=== PATIENT | female | born 1940 | race Caucasian/White ===

== ENCOUNTER 2016-07-16 11:33 | Emergency (ER) | payer MEDICARE, BC ==
[2016-07-16 11:54] VITALS: TEMP 97.7
[2016-07-16] MEDS ORDERED: SODIUM CHLORIDE 0.9% 1,000 ML IV STA ×2 (12:39)
[2016-07-16] MEDS ORDERED: MORPHINE SULFATE 4 MG/ML SYRINGE IVP STA ×2 (12:39→17:38)
[2016-07-16 13:39] LABS: Calcium 9.2 mg/dL (8.4-10.2); Potassium 4.7 mmol/L (3.5-5.1)
[2016-07-16 13:42] LABS: Appearance,Urine Clear (Clear); Bilirubin,Urine Negative (Negative); Glucose,Urine (UA) 1+ (Negative); Ketones,Urine Negative (Negative); Leukocyte Esterase,Urine Negative (Negative); Nitrite,Urine Negative (Negative); Particle Count 1234; Protein,Urine Trace (Negative); RBC,Urine <1 /hpf (0-5); Specific Gravity,Urine 1.004 (1.001-1.035); Squamous Epithelial Cell,Urine 1 /hpf (0-4); UA Billing (MACRO vs. MICRO) MICRO; Urobilinogen,Urine <2.0 mg/dL (<2.0); WBC,Urine <1 /hpf (0-5)
[2016-07-16 13:43] LABS: Basophils % (A) 0 %; CH 30.6; CHCM 34.7; Eosinophils % (A) 0 %; HCT 33.3 % (34.0-46.0); HDW 2.89; HGB 11.3 gm/dL (11.4-16.0); Luc # (Auto) 0.21; Luc % (Auto) 2; Lymphocytes # (A) 0.6 k/uL (1.0-4.8); Lymphocytes % (A) 5 %; MCHC 33.9 g/dL (31.0-37.0); MCV 88.6 fL (80.0-100.0); Mean Platelet Volume 7.2; Monocytes # (A) 0.9 k/uL (0-1.0); Monocytes % (A) 8 %; Neutrophils # (A) 10.3 k/uL (1.3-7.7); Neutrophils % (A) 85 %; RBC 3.75 m/uL (3.80-5.40); RDW 13.1 % (11.5-15.5); WBC 12.1 k/uL (3.8-10.6); WBC (Perox) 12.63
--- NOTE | 2016-07-16 14:06 | CT ---
EXAMINATION TYPE: CT lumbar spine wo con DATE OF EXAM: 07/16/2016 1:47 PM COMPARISON: NONE HISTORY: back pain CT DLP: 1202.9 mGycm CONTRAST: Unenhanced CT of the lumbar spine is performed . Unenhanced CT of the lumbar spine was performed. Bone and soft tissue window settings are submitted as well as coronal and sagittal reconstructions. T12-L1: There is a mild superior endplate compression fracture involving T12 with minimal bony retrop ulsion of 2 mm posterior column is intact as is the middle column. Degenerative disc space narrowing is noted. No herniation or protrusion. L1-L2: Normal disc space height. No disc herniation protrusion or central stenosis. No facet joint arthropathy. No evidence for foraminal encroachment. L2-L3: Severe degenerative disc space narrowing with endplate sclerosis. Associated spondylosis. Disc bulging without herniation protrusion or central stenosis. L3-L4: Marked narrowing at the L3-4 disc space may be related to congenital or postoperative fusion. No disc herniation protrusion or central stenosis. No facet joint arthropathy. No evidence for fora shayne encroachment. L4-L5: Moderate degenerative disc space narrowing. Grade 1 anterolisthesis L4 and L5 measuring 3 mm. Moderate circumferential disc bulge greatest posteriorly with effacement of the ventral thecal sac an d I suspect bilateral lateral recess stenosis. Severe facet joint arthropathy without central stenosi s. L5-S1: Moderate degenerative disc space narrowing. Posterior disc bulge with encapsulating spur resul ting in hard disc. Mild effacement ventral thecal sac. No central stenosis or disc herniation. Facet joint arthropathy. No paraspinal masses are identified. IMPRESSION: 1. Mild stable superior endplate compression fracture involving T12 with minimal bony retropulsion of 2 mm. 2. Degenerative disc disease as discussed above.
--- NOTE | 2016-07-16 14:23 | ED ---
Back Pain HPI - General Chief Complaint: Back Pain/Injury Stated Complaint: back pain Time Seen by Provider: 07/16/16 12:26 Source: patient, family Limitations: no limitations - History of Present Illness Initial Comments: Patient is a 75-year-old female past medical history of multiple myeloma, DVT, COPD presenting with back pain. Patient states the past 2 weeks she has been having lateral lower flank pain. Patient states she takes tramadol without relief as she has allergies to APAP and Motrin. Patient states pain is worse with movement and better with resting. Patient states she feels like she has a urinary tract infection as she's had similar symptoms like this in the past for which she's had a UTI. Last diagnosed with UTI in March 2016. Patient does have multiple myeloma under current chemotherapy. She is also on steroids. Patient complains of incontinence but that has been going on for 9 months. Patient denies any saddle anesthesia. Denies lower extremity weakness. Denies incontinence of stool. - Related Data Home Medications Medication Instructions Recorded Confirmed Aspirin EC [Ecotrin Low Dose] 81 mg PO DAILY 01/18/14 07/16/16 Calcium Citrate/Vitamin D3 1 tab PO TID 01/18/14 07/16/16 [Calcium Citrate - Vit D3 Tab] Cranberry Conc/C/Bacill Coag 1 tab PO DAILY 01/18/14 07/16/16 [Cranberry Tablet] Levothyroxine Sodium [Synthroid] 137 mcg PO DAILY 01/18/14 07/16/16 Ranitidine HCl 150 mg PO BID 01/18/14 07/16/16 Albuterol Nebulized [Ventolin 2.5 mg INHALATION RT-TID 03/25/14 07/16/16 Nebulized] Albuterol Sulfate [Ventolin HFA] 2 puff INHALATION RT-QID 11/27/15 07/16/16 Ascorbic Acid [Vitamin C] 500 mg PO DAILY 11/27/15 07/16/16 Multivitamins, Thera [Multivitamin] 1 tab PO DAILY 11/27/15 07/16/16 Acyclovir 200 mg PO BID 12/16/15 07/16/16 Dexamethasone 20 mg PO WE 12/16/15 07/16/16 Insulin Aspart [NovoLOG Flexpen] See Protocol SQ ACHS 01/01/16 07/16/16 EPINEPHrine [Epipen 2-Tomi] 0.3 mg IM ONCE PRN 10/23/16 01/19/17 Fish Oil/Dha/Epa [Fish Oil 1,200 1 cap PO DAILY 04/19/16 07/16/16 mg Fish Oil] Immodium Advanced 1 tab PO DAILY 04/19/16 07/16/16 Slow-Mag 71.5 mg PO DAILY 04/19/16 07/16/16 Zolpidem Tartrate 5 mg PO HS PRN 04/19/16 07/16/16 traMADol HCl [Ultram] 50 mg PO Q4H PRN 04/19/16 07/16/16 Previous Rx's Medication Instructions Recorded amLODIPine [Norvasc] 5 mg PO BID #60 tab 12/13/15 Docusate [Colace] 100 mg PO BID #20 cap 04/22/16 Insulin Glargine,Hum.rec.anlog 10 unit SQ HS #30 pen 04/22/16 [Lantus Solostar] Methocarbamol [Robaxin] 750 mg PO TID #21 tab 07/16/16 oxyCODONE HCL [Oxaydo] 5 mg PO Q6HR PRN #10 tablet.orl 07/16/16 Allergies Allergy/AdvReac Type Severity Reaction Status Date / Time acetaminophen [From Tylenol] Allergy Swelling Verified 07/16/16 11:52 blue dye Allergy Dyspnea Verified 07/16/16 11:52 clonidine Allergy Unknown Verified 07/16/16 11:52 Latex, Natural Rubber Allergy blister on Verified 07/16/16 11:52 lip levofloxacin [From Levaquin] Allergy Anaphylaxis Verified 07/16/16 11:52 naproxen Allergy Dyspnea Verified 07/16/16 11:52 oxaprozin [From Daypro] Allergy Dyspnea Verified 07/16/16 11:52 Penicillins Allergy Dyspnea Verified 07/16/16 11:52 prednisone Allergy Unknown Verified 07/16/16 11:52 Sulfa (Sulfonamide Allergy Unknown Verified 07/16/16 11:52 Antibiotics) codeine AdvReac Nausea & Verified 07/16/16 11:52 Vomiting & Diarrhea dipyridamole AdvReac Nausea & Verified 07/16/16 11:52 [From Persantine] Vomiting MOLD AdvReac Nausea Uncoded 07/16/16 11:52 Review of Systems ROS Statement: Those systems with pertinent positive or pertinent negative responses have been documented in the HPI. Constitutional: No fever and no chills. HENT: No congestion, no rhinorrhea and no sore throat. Eyes: No discharge and no redness. Respiratory: No cough and no shortness of breath. Cardiovascular: No chest pain and no palpitations. Gastrointestinal: No nausea, no vomiting, no abdominal pain and no diarrhea. Genitourinary: +dysuria and no hematuria. Musculoskeletal: +back pain and no arthralgias. Skin: No pallor and no rash. Neurological: No dizziness and No headaches. No numbness. No weakness. ROS Other: All systems not noted in ROS Statement are negative. Past Medical History Past Medical History: Asthma, Cancer, COPD, Diabetes Mellitus, Deep Vein Thrombosis (DVT), Hypertension, Myocardial Infarction ([place]), Thyroid Disorder Additional Past Medical History / Comment(s): Non-small cell lung cancer status post lobectomy, remote history of DVT 2009, breast cancer status post lumpectomy followed by radiation therapy, skin cancer, thyroid cancer, multiple myeloma dx. September, renal failure in association with multiple myeloma, IBS, migraine, recent anemia-recent blood transfusion & iron infusion in October Last Myocardial Infarction Date:: 2004 History of Any Multi-Drug Resistant Organisms: None Reported Past Surgical History: Appendectomy, Breast Surgery, Cholecystectomy, Heart Catheterization With Stent, Hysterectomy, Orthopedic Surgery Additional Past Surgical History / Comment(s): right breast lumpectomy, carpel tunnel, bladder suspension, partial right lobectomy, total thyroidectomy, arthroscopic knee surg., radha filter inserted, parathyroidectomy, hand surg., cataract surg. Past Anesthesia/Blood Transfusion Reactions: No Reported Reaction Additional Past Anesthesia/Blood Transfusion Reaction / Comment(s): 'nightmares ' due to anesthesia? Date of Last Stent Placement:: 07/29/2004 Past Psychological History: No Psychological Hx Reported Smoking Status: Former smoker Past Alcohol Use History: None Reported Additional Past Alcohol Use History / Comment(s): quit smoking 30 yrs., smoked for 30 yrs. Past Drug Use History: None Reported - Past Family History Mother Family Medical History: Cancer Additional Family Medical History / Comment(s): breast, sister also. Sister(s) Additional Family Medical History / Comment(s): MS General Exam - General Exam Comments Initial Comments: Constitutional: Patient appears well-developed and well-nourished. Mild distress when going from sitting to standing. Head: Normocephalic and atraumatic. Eyes: Conjunctivae and EOM are normal. Right eye exhibits no discharge. Left eye exhibits no discharge. No scleral icterus. Neck: Normal range of motion. Neck supple. Cardiovascular: Normal rate and regular rhythm. No murmur heard. Pulmonary/Chest: Effort normal and breath sounds normal. No respiratory distress. No wheezes. Abdominal: Soft. No distension. There is no tenderness. There is no rebound and no guarding. Musculoskeletal: Patient with bilateral lower back pain tenderness around the SI joint. No midline tenderness with percussion. Sensation intact to bilateral lower x-rays. Distal pulses are present. : completed with Tari RN; patient with normal rectal tone. Neurological: Patient alert and oriented to person, place, and time. Skin: Skin is warm and dry. Not diaphoretic. Nursing notes and vitals reviewed. Limitations: no limitations Course Vital Signs 07/16/16 07/16/16 07/16/16 11:52 13:00 14:00 Temperature 97.7 F Pulse Rate 97 94 91 Respiratory 16 18 16 Rate Blood Pressure 122/58 151/69 151/69 O2 Sat by Pulse 95 98 98 Oximetry 07/16/16 07/16/16 07/16/16 15:00 15:44 16:14 Temperature Pulse Rate 92 92 88 Respiratory 16 18 18 Rate Blood Pressure 160/72 154/71 142/72 O2 Sat by Pulse 97 97 95 Oximetry 07/16/16 07/16/16 17:41 19:04 Temperature Pulse Rate 97 90 Respiratory 18 18 Rate Blood Pressure 146/71 153/73 O2 Sat by Pulse 97 97 Oximetry - Reevaluation(s) Reevaluation #1: Patient with improvement in pain with 2mg of morphine. Medical Decision Making - Medical Decision Making Patient is a 75yo female with multiple myeloma presenting for low back pain x 2 weeks. Patient has tried Ultram w/o relief. Patient thought she had a UTI. UA unremarkable. CT lumbar shows mild stable superior endplate compression fracture involving T12 with minimal bony retropulsion of [address] lumbar also shoulder showed degenerative disc disease. Maximum tenderness is around lower lumbar back/sacral ilial joints not around where CT finds the T12 fracture. Pain improved with morphine. Prior to discharge, patient was resting comfortably in bed. Course of stay improved. Denies pain. Discussed physical exam and diagnostic tests with patient. Questions answered and patient is agreeable to discharge with close follow up with Primary Care Physician. Instructed to return to Emergency Department if symptoms worsen. - Lab Data Result diagrams: 07/16/16 13:07 07/16/16 13:07 Lab Results 07/16/16 07/16/16 07/16/16 Range/Units 13:07 13:07 13:07 WBC 12.1 H (3.8-10.6) k/uL RBC 3.75 L (3.80-5.40) m/uL Hgb 11.3 L (11.4-16.0) gm/dL Hct 33.3 L (34.0-46.0) % MCV 88.6 (80.0-100.0) fL MCH 30.0 (25.0-35.0) pg MCHC 33.9 (31.0-37.0) g/dL RDW 13.1 (11.5-15.5) % Plt Count 251 (150-450) k/uL Neutrophils % 85 % Lymphocytes % 5 % Monocytes % 8 % Eosinophils % 0 % Basophils % 0 % Neutrophils # 10.3 H (1.3-7.7) k/uL Lymphocytes # 0.6 L (1.0-4.8) k/uL Monocytes # 0.9 (0-1.0) k/uL Eosinophils # 0.0 (0-0.7) k/uL Basophils # 0.0 (0-0.2) k/uL Sodium 137 (137-145) mmol/L Potassium 4.7 (3.5-5.1) mmol/L Chloride 100 (98-107) mmol/L Carbon Dioxide 22 (22-30) mmol/L Anion Gap 15 mmol/L BUN 41 H (7-17) mg/dL Creatinine 1.37 H (0.52-1.04) mg/dL Est GFR (MDRD) Af Amer 45 (>60 ml/min/1.73 sqM) Est GFR (MDRD) Non-Af 37 (>60 ml/min/1.73 sqM) Glucose 215 H (74-99) mg/dL Calcium 9.2 (8.4-10.2) mg/dL Urine Color Colorless Urine Appearance Clear (Clear) Urine pH 5.0 (5.0-8.0) Ur Specific [place] 1.004 (1.001-1.035) Urine Protein Trace H (Negative) Urine Glucose (UA) 1+ H (Negative) Urine Ketones Negative (Negative) Urine Blood Trace H (Negative) Urine Nitrate Negative (Negative) Urine Bilirubin Negative (Negative) Urine Urobilinogen <2.0 (<2.0) mg/dL Ur Leukocyte Esterase Negative (Negative) Urine RBC <1 (0-5) /hpf Urine WBC <1 (0-5) /hpf Ur Squamous Epith Cells 1 (0-4) /hpf Disposition Clinical Impression: Sacroiliitis, Back pain Disposition: HOME SELF-CARE Condition: Good Instructions: Acute Low Back Pain (ED) Prescriptions: oxyCODONE HCL [Oxaydo] 5 mg PO Q6HR PRN #10 tablet.orl PRN Reason: Severe Pain Methocarbamol [Robaxin] 750 mg PO TID #21 tab Referrals: Candi Muñoz MD [Primary Care Provider] - 1-2 days
[2016-07-16 16:44] VITALS: RESP 18
[2016-07-16 19:05] VITALS: BP 153/73; PULSE 90
== END 2016-07-16 19:05 | disposition home or self-care (01) ==
LOC: EC 11:33
DX: M46.1 Sacroiliitis, not elsewhere classified (principal); C90.00 Multiple myeloma not having achieved remission; M51.36 Other intervertebral disc degeneration, lumbar region; Z87.891 Personal history of nicotine dependence; J45.909 Unspecified asthma, uncomplicated; E11.9 Type 2 diabetes mellitus without complications; I25.2 Old myocardial infarction; J44.9 Chronic obstructive pulmonary disease, unspecified; I10 Essential (primary) hypertension; K58.9 Irritable bowel syndrome, unspecified; Z87.440 Personal history of urinary (tract) infections; Z86.718 Personal history of other venous thrombosis and embolism; Z85.118 Personal history of other malignant neoplasm of bronchus and lung; Z85.850 Personal history of malignant neoplasm of thyroid; Z80.3 Family history of malignant neoplasm of breast; Z79.52 Long term (current) use of systemic steroids; Z79.899 Other long term (current) drug therapy; Z79.82 Long term (current) use of aspirin; Z79.891 Long term (current) use of opiate analgesic; Z79.4 Long term (current) use of insulin; Z88.6 Allergy status to analgesic agent; Z91.040 Latex allergy status; Z88.0 Allergy status to penicillin; Z88.1 Allergy status to other antibiotic agents; Z88.5 Allergy status to narcotic agent; Z85.3 Personal history of malignant neoplasm of breast; Z90.49 Acquired absence of other specified parts of digestive tract; Z90.89 Acquired absence of other organs; Z90.710 Acquired absence of both cervix and uterus; Z95.5 Presence of coronary angioplasty implant and graft; Z90.2 Acquired absence of lung [part of]
CPT/HCPCS: 99284 ×2; 96374 ×2; 96376 ×2; 96361 ×7; 36415; 80048; 85025; 81001; 87086; 72131; J2270

== ENCOUNTER 2016-07-23 06:20 | Day surgery (SDC) | payer MEDICARE, BC ==
[2016-07-20 16:20] VITALS: BMI 34.0
[2016-07-23] MEDS ORDERED: LIDOCAINE 1% 20 ML VIAL (10MG/ML) FOR IV START INTRADERMA PRN (06:36)
[2016-07-23] MEDS ORDERED: HYDROmorphone 1 MG/ML 1 ML SYRINGE IVP PRN (06:36)
[2016-07-23] MEDS ORDERED: LACTATED RINGERS 1,000 ML IV SCH (06:36)
[2016-07-23] MEDS ORDERED: MIDAZOLAM 2 MG/2 ML VIAL IV PRN (06:36)
[2016-07-23] MEDS ORDERED: LACTATED RINGERS 1,000 ML IV ONE (06:39)
[2016-07-23 06:58] VITALS: TEMP 97
[2016-07-23 07:05] LABS: Glucose,Whole Blood 152 mg/dL (75-99)
[2016-07-23] MEDS ORDERED: LIDOCAINE 1% INJ 10MG/ML (20 ML MDV) ONE (07:11)
[2016-07-23] MEDS ORDERED: PROPOFOL 10 MG/ML 20 ML VIAL IV ONE (07:11)
[2016-07-23] MEDS ORDERED: MIDAZOLAM 2 MG/2 ML VIAL ONE (07:11)
[2016-07-23] MEDS ORDERED: fentaNYL (PF) 50 MCG/ML 2 ML AMP ONE (07:11)
[2016-07-23 07:48] LABS: Glucose,Whole Blood 138 mg/dL (75-99)
[2016-07-23] MEDS ORDERED: hydrALAZINE HCL 20 MG/ML 1 ML VIAL IV ONE (07:56)
[2016-07-23 08:00] LABS: Basophils % (A) 0 %; CH 30.5; CHCM 34.6; Eosinophils # (A) 0.3 k/uL (0-0.7); Eosinophils % (A) 4 %; HCT 31.8 % (34.0-46.0); HDW 2.87; HGB 10.8 gm/dL (11.4-16.0); Luc # (Auto) 0.23; Luc % (Auto) 3; Lymphocytes # (A) 0.9 k/uL (1.0-4.8); Lymphocytes % (A) 11 %; MCH 30.1 pg (25.0-35.0); MCV 88.7 fL (80.0-100.0); Mean Platelet Volume 7.3; Monocytes # (A) 0.6 k/uL (0-1.0); Monocytes % (A) 7 %; Neutrophils # (A) 6.4 k/uL (1.3-7.7); Neutrophils % (A) 76 %; RBC 3.58 m/uL (3.80-5.40); RDW 13.3 % (11.5-15.5); WBC 8.4 k/uL (3.8-10.6); WBC (Perox) 8.78
[2016-07-23 08:08] VITALS: RESP 16
[2016-07-23 08:28] VITALS: BP 151/74; PULSE 74
--- NOTE | 2016-07-23 08:43 | PCN ---
DATE OF PROCEDURE: PREOPERATIVE DIAGNOSIS: Multiple myeloma. POSTOPERATIVE DIAGNOSIS: Multiple myeloma. PROCEDURE: Bone marrow aspirate and biopsy. SITE: Right iliac crest. ANESTHESIA: Local with IV systemic sedation. DETAILS: Utilizing sterile technique, the skin overlying the right iliac crest was prepared with Betadine and alcohol and after adequate sterile draping, systemic sedation and local anesthesia, 1% lidocaine, size 11, 4 inch Jamshidi needle was utilized to access the periosteum with ease. A total of 15 mL of aspirate was obtained and a small, less than 1 mm bone core biopsy was obtained as well. The patient tolerated the procedure very well. There were no immediate procedure-related complications. Total blood less than 1 mL. Results pending.
[2016-07-24 09:47] LABS: Bone Marrow Cell Count Performed
== END 2016-07-23 08:43 | disposition home or self-care (01) ==
LOC: OR 06:20
PROVIDERS: ATTEND Internal Medicine Hematology & Oncology
DX: D64.9 Anemia, unspecified (principal); C90.00 Multiple myeloma not having achieved remission; I25.10 Atherosclerotic heart disease of native coronary artery without angina pectoris; J44.9 Chronic obstructive pulmonary disease, unspecified; E11.9 Type 2 diabetes mellitus without complications; Z79.4 Long term (current) use of insulin; K21.9 Gastro-esophageal reflux disease without esophagitis; Z79.899 Other long term (current) drug therapy; Z88.0 Allergy status to penicillin; Z88.2 Allergy status to sulfonamides; Z88.6 Allergy status to analgesic agent; Z91.040 Latex allergy status
CPT/HCPCS: 85025; 38221; J2250; J0360; J2001; J3010; J2704; G0364; 99153

== ENCOUNTER → 2016-07-27 | Outpatient (CLI) | payer MEDICARE, BC ==
--- NOTE | 2016-07-27 13:39 | US ---
EXAMINATION TYPE: US venous doppler duplex LE RT DATE OF EXAM: 07/27/2016 1:23 PM COMPARISON: NONE CLINICAL HISTORY: 75-year-old female R22.41 Swelling in right lower extremity. TECHNIQUE: Duplex Doppler ultrasound examination of the right lower extremity. FINDINGS: SIDE PERFORMED: Right VESSELS IMAGED: External Iliac Vein (EIV) Common Femoral Vein Deep Femoral Vein Greater Saphenous Vein * Femoral Vein Popliteal Vein Small Saphenous Vein * Proximal Calf Veins (* superficial vessels) IMPRESSION: No evidence for DVT within the right lower extremity imaged from the groin to the upper calf.
== END | disposition home or self-care (01) ==
LOC: RADUSWWP 12:25
PROVIDERS: ATTEND Internal Medicine Hematology & Oncology
DX: M79.89 Other specified soft tissue disorders (principal)

== ENCOUNTER 2016-08-02 22:59 | Emergency (ER) | payer MEDICARE, BC ==
[2016-08-02 23:18] VITALS: TEMP 98.1
[2016-08-02] MEDS ORDERED: diphenhydrAMINE 50 MG/ML 1 ML VIAL IVP STA (23:39)
[2016-08-02] MEDS ORDERED: FAMOTIDINE 20 MG/2 ML VIAL IV STA (23:39)
--- NOTE | 2016-08-02 23:46 | ED ---
General Adult HPI - General Chief complaint: Allergic Reaction Stated complaint: SOB/Swelling Time Seen by Provider: 08/02/16 23:20 Source: patient, family, RN notes reviewed, old records reviewed Mode of arrival: ambulatory Limitations: no limitations - History of Present Illness Initial comments: Chief complaint history of present illness is a 75-year-old female here with the . Patient reports she took a Lasix starting 3 days ago. States she thinks she is having adverse reaction to the [place] this. She states normally she has or adverse reactions approximately on the third day. Patient has multiple ALLERGIES. She did take approximately 25 mg of Benadryl elixir at home. States she is feeling slightly better at this time. No respiratory distress no hives. She complains of some numbness or swelling around the lips and tongue though none is obvious on exam - Related Data Home Medications Medication Instructions Recorded Confirmed Aspirin EC [Ecotrin Low Dose] 81 mg PO DAILY 01/18/14 08/02/16 Calcium Citrate/Vitamin D3 1 tab PO DAILY 01/18/14 08/02/16 [Calcium Citrate - Vit D3 Tab] Levothyroxine Sodium [Synthroid] 137 mcg PO QAM 01/18/14 08/02/16 Ranitidine HCl 150 mg PO BID PRN 01/18/14 08/02/16 Albuterol Nebulized [Ventolin 2.5 mg INHALATION RT-TID 03/25/14 08/02/16 Nebulized] Albuterol Sulfate [Ventolin HFA] 2 puff INHALATION RT-QID 11/27/15 08/02/16 Multivitamins, Thera [Multivitamin] 1 tab PO DAILY 11/27/15 08/02/16 Acyclovir 200 mg PO BID 12/16/15 08/02/16 Dexamethasone 20 mg PO WE 12/16/15 08/02/16 Insulin Aspart [NovoLOG Flexpen] See Protocol SQ ACHS 01/01/16 08/02/16 EPINEPHrine [Epipen 2-Tomi] 0.3 mg IM ONCE PRN 04/19/16 08/02/16 Fish Oil/Dha/Epa [Fish Oil 1,200 1 cap PO DAILY 04/19/16 08/02/16 mg Fish Oil] Immodium Advanced 1 tab PO DAILY 04/19/16 08/02/16 Slow-Mag 71.5 mg PO DAILY 04/19/16 08/02/16 traMADol HCl [Ultram] 50 mg PO Q4H PRN 04/19/16 08/02/16 Velcade 1 applic SQ Q7D 07/20/16 08/02/16 Zoledronic Acid [Zometa] 2 mg IV Q28D 07/20/16 08/02/16 Previous Rx's Medication Instructions Recorded amLODIPine [Norvasc] 5 mg PO BID #60 tab 12/13/15 Insulin Glargine,Hum.rec.anlog 10 unit SQ HS #30 pen 04/22/16 [Lantus Solostar] Methocarbamol [Robaxin] 750 mg PO TID #21 tab 07/16/16 Allergies Allergy/AdvReac Type Severity Reaction Status Date / Time acetaminophen [From Tylenol] Allergy Swelling Verified 08/02/16 23:18 blue dye Allergy Dyspnea Verified 08/02/16 23:18 clonidine Allergy Throat Verified 08/02/16 23:18 swells Latex, Natural Rubber Allergy blister on Verified 08/02/16 23:18 lip levofloxacin [From Levaquin] Allergy Anaphylaxis Verified 08/02/16 23:18 naproxen Allergy Dyspnea Verified 08/02/16 23:18 oxaprozin [From Daypro] Allergy Dyspnea Verified 08/02/16 23:18 Penicillins Allergy Dyspnea, Verified 08/02/16 23:18 throat swells prednisone Allergy Unknown Verified 08/02/16 23:18 Sulfa (Sulfonamide Allergy Unknown Verified 08/02/16 23:18 Antibiotics) dipyridamole AdvReac Severe Nausea & Verified 08/02/16 23:18 [From Persantine] Vomiting, Anaphalaxis codeine AdvReac Nausea & Verified 08/02/16 23:18 Vomiting & Diarrhea MOLD AdvReac Nausea,Dysp Uncoded 08/02/16 23:18 arben Review of Systems ROS Statement: Those systems with pertinent positive or pertinent negative responses have been documented in the HPI. Review of systems. No headache or visual acuity changes complains of a sensation of fullness to her tongue and lips no numbness noted. states her voice does sound slightly different. No stridor. No chest pain shortness of breath GI/ complications or problems at this time. All systems are reviewed. Past medical problems significant for insulin-dependent diabetes, DVT, hypertension, previous [place], low thyroid, lung cancernon-small cell type. Patient had chemotherapy up until 2 weeks ago. Surgeries include appendectomy, breast biopsy, cholecystectomy, heart catheterization, hysterectomy, right breast lumpectomy. Family history noncontributory. ROS Other: All systems not noted in ROS Statement are negative. Past Medical History Past Medical History: Asthma, Cancer, COPD, Diabetes Mellitus, Deep Vein Thrombosis (DVT), Hypertension, Myocardial Infarction ([place]), Thyroid Disorder Additional Past Medical History / Comment(s): Non-small cell lung cancer status post lobectomy, remote history of DVT 2009, breast cancer status post lumpectomy followed by radiation therapy, skin cancer, thyroid cancer, multiple myeloma dx. September, renal failure in association with multiple myeloma, IBS, migraine, recent anemia-recent blood transfusion & iron infusion in October Last Myocardial Infarction Date:: 2004 History of Any Multi-Drug Resistant Organisms: None Reported Past Surgical History: Appendectomy, Breast Surgery, Cholecystectomy, Heart Catheterization With Stent, Hysterectomy, Orthopedic Surgery Additional Past Surgical History / Comment(s): right breast lumpectomy, carpel tunnel, bladder suspension, partial right lobectomy, total thyroidectomy, arthroscopic knee surg., radha filter inserted, parathyroidectomy, hand surg., cataract surg. Past Anesthesia/Blood Transfusion Reactions: No Reported Reaction Additional Past Anesthesia/Blood Transfusion Reaction / Comment(s): 'nightmares ' due to anesthesia? Date of Last Stent Placement:: 07/29/2004 Past Psychological History: No Psychological Hx Reported Smoking Status: Former smoker Past Alcohol Use History: None Reported Additional Past Alcohol Use History / Comment(s): quit smoking 30 yrs., smoked for 30 yrs. Past Drug Use History: None Reported - Past Family History Father Family Medical History: Cancer Additional Family Medical History / Comment(s): Colon CA. Mother Family Medical History: Cancer Additional Family Medical History / Comment(s): breast CA. Sister(s) Family Medical History: Cancer Additional Family Medical History / Comment(s): MS, Breast CA. General Exam - General Exam Comments Initial Comments: General: The patient is awake and alert, states she thinks she is having a mild ALLERGIC reaction to Lasix which she started 3 days ago. Complains of some swelling of bumps on her lips mild swelling of her tongue. Vital signs shows temperature 98.1 pulse 88 respiratory rate 18 pulse ox 96% room air blood pressure 106/75 Eye: Pupils are equal, round and reactive to light, extra-ocular movements are intact ; there is normal conjunctiva bilaterally. No signs of icterus. Ears, nose, mouth and throat: Mildly dry tongue. The tongue is not appear to be grossly enlarged. No stridor heard with auscultation of the neck. Neck: The neck is supple, there is no tenderness , no stridor Cardiovascular: There is a regular rate and rhythm. No murmur, rub or gallop is appreciated. Respiratory: Lungs are clear to auscultation, respirations are non-labored, breath sounds are equal. No wheezes, stridor, rales, or rhonchi. Gastrointestinal: No complaints of any nausea vomiting or diarrhea. Back: No back pain Musculoskeletal: Normal ROM, no tenderness, There is no pedal edema. There is no calf tenderness or swelling. Sensation intact. Pulses equal bilaterally 2+. Neurological: CN II-XII intact, There are no obvious motor or sensory deficits. Coordination appears grossly intact. Speech is normal. Skin: No skin rash Limitations: no limitations Course Vital Signs 08/02/16 08/03/16 23:16 00:26 Temperature 98.1 F Pulse Rate 88 83 Respiratory 18 16 Rate Blood Pressure 106/75 106/75 O2 Sat by Pulse 96 Oximetry EKG Findings - EKG Comments: EKG Findings:: EKG was done and reviewed at 2317 showing normal sinus rhythm no acute ST elevation no ectopy no ischemic changes. Rate 88 NM interval is 172 QRS 84 QT [address] Gonzalez Medical Decision Making - Medical Decision Making Patient is feeling slightly better. No stridor or wheezing. Tongue is not enlarged lips are not swollen. Patient be advised to continue with Benadryl 25 mg twice daily for the next 2 days. Also follow with her family physician advised to stop taking whatever medication she thinks is causing the possible ALLERGIC reaction Patient vital signs are stable. No noticeable tongue swelling or lip swelling. Patient be advised to continue with Benadryl at home and Pepcid. Disposition Clinical Impression: Adverse reaction to drug Disposition: HOME SELF-CARE Condition: Good Instructions: Allergies (ED) Additional Instructions: Take Benadryl 25 mg twice a day for the next 2 days. Also Pepcid 20 mg per day for the next 2 days. Stop whatever medication use think may be causing here adverse reaction. Follow-up with your family physician Time of Disposition: 00:44
[2016-08-03 01:30] VITALS: BP 106/80; PULSE 80; RESP 14
== END 2016-08-03 01:28 | disposition home or self-care (01) ==
LOC: EC 22:59
DX: T50.1X5A Adverse effect of loop [high-ceiling] diuretics, initial encounter (principal); E11.9 Type 2 diabetes mellitus without complications; E07.9 Disorder of thyroid, unspecified; J45.909 Unspecified asthma, uncomplicated; J44.9 Chronic obstructive pulmonary disease, unspecified; C34.90 Malignant neoplasm of unspecified part of unspecified bronchus or lung; Z87.891 Personal history of nicotine dependence; Z88.0 Allergy status to penicillin; Z88.2 Allergy status to sulfonamides; Z88.5 Allergy status to narcotic agent; Z88.8 Allergy status to other drugs, medicaments and biological substances; Z88.6 Allergy status to analgesic agent; Z91.040 Latex allergy status; Z88.1 Allergy status to other antibiotic agents; Z79.899 Other long term (current) drug therapy; Z79.4 Long term (current) use of insulin; Z79.82 Long term (current) use of aspirin; Z79.52 Long term (current) use of systemic steroids; Z95.5 Presence of coronary angioplasty implant and graft
CPT/HCPCS: 99283; 96374; 96375; 93005; J1200

== ENCOUNTER 2016-09-07 15:23 | Emergency (ER) | payer MEDICARE, BC ==
[2016-09-07] MEDS ORDERED: ONDANSETRON 4 MG/2 ML VIAL IVP STA (16:25)
[2016-09-07] MEDS ORDERED: SODIUM CHLORIDE 0.9% 1,000 ML IV ONE (16:25)
[2016-09-07] MEDS ORDERED: MORPHINE SULFATE 2 MG/ML SYRINGE IVP ONE (17:23)
[2016-09-07 17:29] LABS: Aty Lym Flag Marked; CH 31.2; CHCM 34.9; HCT 33.9 % (34.0-46.0); HDW 2.87; HGB 11.6 gm/dL (11.4-16.0); MCH 30.7 pg (25.0-35.0); MCHC 34.3 g/dL (31.0-37.0); MCV 89.7 fL (80.0-100.0); Mean Platelet Volume 7.1; RBC 3.78 m/uL (3.80-5.40); RDW 14.7 % (11.5-15.5); WBC (Perox) 13.76
[2016-09-07 17:31] LABS: Amorphous Sediment,Urine Rare /hpf; Appearance,Urine Clear (Clear); Bacteria,Urine Occasional /hpf; Bilirubin,Urine Negative (Negative); Glucose,Urine (UA) Negative (Negative); Ketones,Urine 1+ (Negative); Leukocyte Esterase,Urine Negative (Negative); Nitrite,Urine Negative (Negative); PH, Urine 5.5 (5.0-8.0); Particle Count 7598; Protein,Urine 2+ (Negative); Specific Gravity,Urine 1.016 (1.001-1.035); UA Billing (MACRO vs. MICRO) MICRO; Urobilinogen,Urine <2.0 mg/dL (<2.0); WBC,Urine 2 /hpf (0-5)
[2016-09-07 17:40] LABS: Potassium 4.3 mmol/L (3.5-5.1); Total Bilirubin 0.9 mg/dL (0.2-1.3); Total Protein 6.2 g/dL (6.3-8.2)
[2016-09-07 18:02] LABS: Add Differential Manual Differential
--- NOTE | 2016-09-07 18:04 | CT ---
EXAMINATION TYPE: CT brain sheryl adames con DATE OF EXAM: 09/07/2016 5:54 PM COMPARISON: CT brain December 16, 2015 HISTORY: Fall today. Posterior head injury CT DLP: 1391.9 mGycm. Automated Exposure Control for Dose Reduction was Utilized. TECHNIQUE: CT scan of the head and cervical spine are performed without contrast. FINDINGS: There is new right-sided acute extra-axial probable subdural hemorrhage measuring up to 8 m m in thickness on axial image 28 over right frontal parietal region with superior temporal lobe exten [place]. A low dense component suggests possible acute on chronic hemorrhage. No significant midline yan ft is seen. There is mild diffuse ventricular and sulcal prominence consistent with mild age-related cerebral atrophy. There is low-attenuation periventricular white matter The globes are intact and th e visualized sinuses are clear. The calvarium is intact. Cervical spine is visualized in its entirety from C1 through upper thoracic levels and demonstrates s atisfactory alignment without evidence of acute fracture or dislocation. Prevertebral soft tissue ap pears within normal limits. The C1-C2 articulation is within normal limits on the coronal images. Osseous structures are demineralized. Vertebral body heights are maintained. There is moderate to adv anced disc space narrowing C2-C3 and C5-C6 levels. Posterior spur disc complexes are effacing anterio r thecal sac at these levels on sagittal images. Review of axial images shows multilevel left greater than right uncovertebral facet degenerative changes contributing to multilevel neural foraminal narr owing. Thyroid gland is nonvisualized and may be congenitally or surgically absent. There is partial visualization of right internal jugular catheter. Moderate to severe calcified plaque at bilateral ca rotid bulbs is noted. IMPRESSION: 1. There is no acute fracture or dislocation evident in the cervical spine. 2. There is small to moderate-sized right-sided acute or acute on chronic extra-axial probable subdur al hemorrhage in the right frontal parietal lobes with superior temporal lobe extension with perhaps minimal midline shift present 2 mm away or to the left noted. Progress CT within the next 24 hours is advised. Critical results were communicated to ordering ER physician via telephone at time of dictation.
[2016-09-07 18:06] LABS: Band Neutrophils % 7.5 %; Nucleated Red Blood Cells 0 /100 WBC (0-0); Total Cells Counted 200
[2016-09-07 18:08] LABS: Manual Review Performed; Ovalocytes Present; Polychromasia Present
--- NOTE | 2016-09-07 18:10 | CT ---
EXAMINATION TYPE: CT lumbar spine wo con DATE OF EXAM: 09/07/2016 5:53 PM COMPARISON: CT lumbar spine July 16 2016. HISTORY: Fall today. Low back and hip pain. History of multiple myeloma . CT DLP: 1137.2 mGycm Automated exposure control for dose reduction was used. FINDINGS: There are 5 lumbar-type vertebra redemonstrated. Left L5 segment is partially sacralized. Lumbar spin e shows satisfactory alignment with some sclerosis and new mild height loss at previously visualized comminuted acute burst type fracture at T12 level. There is minimal posterior retropulsion of ossific fragments along superior margin on sagittal image 33 redemonstrated without significant progression from prior study. No new acute fracture or dislocation is seen. There is advanced disc space narrowin g L2-L3 and L3-L4 levels with some ossific fusion L3-L4 level seen. There is spurring and sclerosis L 2-L3 level redemonstrated. Posterior spur disc complexes are seen at these levels and in the lower michael mbar spine on sagittal images. Review of axial images show spinal canal effacement at L3-L4 level due to disc herniation and facet a rthropathy on axial image 44. There is slightly more prominent findings due to moderate broad-based posterior disc protrusion and m oderate facet arthropathy at L4-L5 level on axial image 52. Axial images at L5-S1 level show moderate to severe facet arthropathy bilaterally. There is sclerosis and narrowing at sacralized left L5-S1 articulation redemonstrated. An infrarenal IVC filter is redemonstrated. There is moderate to severe calcified atherosclerotic yehuda nge in the distal abdominal aorta. IMPRESSION: Subacute burst type fracture T12 level with mild height loss now present. No new acute fr acture or dislocation is seen. Other degenerative findings as noted above not significantly changed f rom prior study
[2016-09-07 18:33] VITALS: TEMP 97.9
--- NOTE | 2016-09-07 18:44 | ED ---
Fall HPI - General Chief Complaint: Fall Stated Complaint: Fall Time Seen by Provider: 09/07/16 15:35 Source: patient, EMS Mode of arrival: EMS - History of Present Illness Initial Comments: Fell, she has a history of multiple myeloma she was in the tub she had a hard time getting out of the tub as well as to come several hours to get out of the tub and now she is complaining about today she bumped her head and complaining about the neck pain as well. No chest pain or shortness of breath no abdominal pain no frequency urgency dysuria she didn't mention about accidents like she lost control of her bowels after the fall. Review of system is positive for some confusion which is off-and-on during his arrival or at the time of friable GCS was fine and she denied any other complaints - Related Data Home Medications Medication Instructions Recorded Confirmed RX: Aspirin EC [Ecotrin Low Dose] 81 mg PO DAILY 01/18/14 09/07/16 RX: Calcium Citrate/Vitamin D3 1 tab PO DAILY 01/18/14 09/07/16 [Calcium Citrate - Vit D3 Tab] RX: Levothyroxine Sodium 137 mcg PO QAM 01/18/14 09/07/16 [Synthroid] RX: Ranitidine HCl 150 mg PO BID PRN 01/18/14 09/07/16 RX: Albuterol Nebulized [Ventolin 2.5 mg INHALATION RT-TID 03/25/14 09/07/16 Nebulized] RX: Albuterol Sulfate [Ventolin 2 puff INHALATION RT-QID 11/27/15 09/07/16 HFA] RX: Multivitamins, Thera 1 tab PO DAILY 11/27/15 09/07/16 [Multivitamin] RX: Acyclovir 200 mg PO BID 12/16/15 09/07/16 Immodium Advanced 1 tab PO DAILY 04/19/16 09/07/16 RX: EPINEPHrine [Epipen 2-Tomi] 0.3 mg IM ONCE PRN 04/19/16 09/07/16 RX: Fish Oil/Dha/Epa [Fish Oil 1 cap PO DAILY 04/19/16 09/07/16 1,200 mg Fish Oil] RX: traMADol HCl [Ultram] 50 mg PO Q6H PRN 04/19/16 09/07/16 Slow-Mag 71.5 mg PO DAILY 04/19/16 09/07/16 Cranberry Fruit Concentrate 450 mg PO DAILY 09/07/16 09/07/16 [Cranberry] Diltiazem HCl [Diltiazem ER] 180 mg PO DAILY 09/07/16 09/07/16 Docusate Sodium [Dok] 100 mg PO DAILY 09/07/16 09/07/16 Furosemide [Lasix] 20 mg PO DAILY 09/07/16 09/07/16 INSULIN LISPRO (HumaLOG) [HumaLOG] See Protocol SQ AC-TID 09/07/16 09/07/16 [place]-3 Fatty Acids/Fish Oil [Fish 1 cap PO DAILY 09/07/16 09/07/16 Oil 1,000 mg Softgel] cloNIDine HCL [Catapres] 0.2 mg PO BID 09/07/16 09/07/16 Previous Rx's Medication Instructions Recorded RX: amLODIPine [Norvasc] 5 mg PO BID #60 tab 12/13/15 Insulin Glargine,Hum.rec.anlog 10 unit SQ HS #30 pen 04/22/16 [Lantus Solostar] Methocarbamol [Robaxin] 750 mg PO TID #21 tab 07/16/16 Allergies Allergy/AdvReac Type Severity Reaction Status Date / Time acetaminophen [From Tylenol] Allergy Swelling Verified 09/07/16 15:42 blue dye Allergy Dyspnea Verified 09/07/16 15:42 clonidine Allergy Throat Verified 09/07/16 15:42 swells Latex, Natural Rubber Allergy blister on Verified 09/07/16 15:42 lip levofloxacin [From Levaquin] Allergy Anaphylaxis Verified 09/07/16 15:42 naproxen Allergy Dyspnea Verified 09/07/16 15:42 oxaprozin [From Daypro] Allergy Dyspnea Verified 09/07/16 15:42 Penicillins Allergy Dyspnea, Verified 09/07/16 15:42 throat swells prednisone Allergy Unknown Verified 09/07/16 15:42 Sulfa (Sulfonamide Allergy Unknown Verified 09/07/16 15:42 Antibiotics) dipyridamole AdvReac Severe Nausea & Verified 09/07/16 15:42 [From Persantine] Vomiting, Anaphalaxis codeine AdvReac Nausea & Verified 09/07/16 15:42 Vomiting & Diarrhea MOLD AdvReac Nausea,Dysp Uncoded 08/02/16 23:18 arben Review of Systems ROS Statement: Those systems with pertinent positive or pertinent negative responses have been documented in the HPI. ROS Other: All systems not noted in ROS Statement are negative. Past Medical History Past Medical History: Asthma, Cancer, COPD, Diabetes Mellitus, Deep Vein Thrombosis (DVT), Hypertension, Myocardial Infarction (SC), Thyroid Disorder Additional Past Medical History / Comment(s): Non-small cell lung cancer status post lobectomy, remote history of DVT 2009, breast cancer status post lumpectomy followed by radiation therapy, skin cancer, thyroid cancer, multiple myeloma dx. September, renal failure in association with multiple myeloma, IBS, migraine, recent anemia-recent blood transfusion & iron infusion in October Last Myocardial Infarction Date:: 2004 History of Any Multi-Drug Resistant Organisms: None Reported Past Surgical History: Appendectomy, Breast Surgery, Cholecystectomy, Heart Catheterization With Stent, Hysterectomy, Orthopedic Surgery Additional Past Surgical History / Comment(s): right breast lumpectomy, carpel tunnel, bladder suspension, partial right lobectomy, total thyroidectomy, arthroscopic knee surg., radha filter inserted, parathyroidectomy, hand surg., cataract surg. Past Anesthesia/Blood Transfusion Reactions: No Reported Reaction Additional Past Anesthesia/Blood Transfusion Reaction / Comment(s): 'nightmares ' due to anesthesia? Date of Last Stent Placement:: 07/29/2004 Past Psychological History: No Psychological Hx Reported Smoking Status: Former smoker Past Alcohol Use History: None Reported Additional Past Alcohol Use History / Comment(s): quit smoking 30 yrs., smoked for 30 yrs. Past Drug Use History: None Reported - Past Family History Father Family Medical History: Cancer Additional Family Medical History / Comment(s): Colon CA. Mother Family Medical History: Cancer Additional Family Medical History / Comment(s): breast CA. Sister(s) Family Medical History: Cancer Additional Family Medical History / Comment(s): MS, Breast CA. General Exam - General Exam Comments Initial Comments: General: The patient is awake and alert, in no distress, and does not appear acutely ill. Looks pale Skin: Skin is warm and dry and no rashes or lesions are noted. Eye: Pupils are equal, round and reactive to light, extra-ocular movements are intact; there is normal conjunctiva bilaterally. Ears, nose, mouth and throat: There are moist mucous membranes and no oral lesions. Neck: The neck is in a collar Cardiovascular: There is a regular rate and rhythm. No murmur, rub or gallop is appreciated. Respiratory: To auscultation bilateral, no wheezing no rhonchi no distress respiratory barraza noticed Gastrointestinal: Soft, non-distended, non-tender abdomen without masses or organomegaly noted. There is no rebound or guarding present. Bowel sounds are unremarkable. Back: There is tender over the lower thoracic and upper lumbar region Musculoskeletal: Left hip is tender over the greater trochanter area range of motion is decreased because of the pain Neurological: CN II-XII intact, Cranial nerves III through XII are intact. There are no obvious motor or sensory deficits. Coordination appears grossly intact. Speech is normal. Psychiatric: Cooperative, appropriate mood & affect, normal judgment. Limitations: physical limitation Course Vital Signs 09/07/16 09/07/16 09/07/16 15:40 15:58 17:00 Temperature 98.4 F Pulse Rate 112 H 112 H 113 H Respiratory 18 18 18 Rate Blood Pressure 218/88 205/86 187/81 O2 Sat by Pulse 94 L 97 96 Oximetry 09/07/16 09/07/16 18:25 18:32 Temperature 97.9 F Pulse Rate 117 H 114 H Respiratory 20 18 Rate Blood Pressure 166/72 166/72 O2 Sat by Pulse 95 96 Oximetry Center was informed by the subdural hematoma as well as a T12 burst fracture and abnormal labs patient was given the options whenever they wanted to go for the treatment they were not quite clear about that finally they agreed for [facility] a patient be transferred there as soon as possible additional arrangements are made - Reevaluation(s) Reevaluation #1: 09/07/16 18:47 Dr. Flood accepted her care at [facility] Medical Decision Making - Lab Data Result diagrams: 09/07/16 17:10 09/07/16 17:10 Lab Results 09/07/16 09/07/16 09/07/16 Range/Units 17:10 17:10 17:10 WBC 13.0 H (3.8-10.6) k/uL RBC 3.78 L (3.80-5.40) m/uL Hgb 11.6 (11.4-16.0) gm/dL Hct 33.9 L (34.0-46.0) % MCV 89.7 (80.0-100.0) fL MCH 30.7 (25.0-35.0) pg MCHC 34.3 (31.0-37.0) g/dL RDW 14.7 (11.5-15.5) % Plt Count 85 L D (150-450) k/uL Neutrophils % (Manual) 71.0 % Band Neutrophils % 7.5 % Lymphocytes % (Manual) 9.0 % Monocytes % (Manual) 7.0 % Eosinophils % (Manual) 1.5 % Myelocytes % 4.0 % Neutrophils # (Manual) 10.2 H (1.3-7.7) k/uL Lymphocytes # (Manual) 1.2 (1.0-4.8) k/uL Monocytes # (Manual) 0.9 (0-1.0) k/uL Eosinophils # (Manual) 0.2 (0-0.7) k/uL Nucleated RBCs 0 (0-0) /100 WBC Manual Slide Review Performed Polychromasia Present Ovalocytes Present Sodium 138 (137-145) mmol/L Potassium 4.3 (3.5-5.1) mmol/L Chloride 96 L (98-107) mmol/L Carbon Dioxide 24 (22-30) mmol/L Anion Gap 18 mmol/L BUN 36 H (7-17) mg/dL Creatinine 1.24 H (0.52-1.04) mg/dL Est GFR (MDRD) Af Amer 51 (>60 ml/min/1.73 sqM) Est GFR (MDRD) Non-Af 42 (>60 ml/min/1.73 sqM) Glucose 95 (74-99) mg/dL Calcium 14.9 H* (8.4-10.2) mg/dL Total Bilirubin 0.9 (0.2-1.3) mg/dL AST 74 H (14-36) U/L ALT 97 H (9-52) U/L Alkaline Phosphatase 215 H (38-126) U/L Total Protein 6.2 L (6.3-8.2) g/dL Albumin 4.0 (3.5-5.0) g/dL Urine Color Yellow Urine Appearance Clear (Clear) Urine pH 5.5 (5.0-8.0) Ur Specific [place] 1.016 (1.001-1.035) Urine Protein 2+ H (Negative) Urine Glucose (UA) Negative (Negative) Urine Ketones 1+ H (Negative) Urine Blood Moderate H (Negative) Urine Nitrate Negative (Negative) Urine Bilirubin Negative (Negative) Urine Urobilinogen <2.0 (<2.0) mg/dL Ur Leukocyte Esterase Negative (Negative) Urine WBC 2 (0-5) /hpf Amorphous Sediment Rare H (None) /hpf Urine Bacteria Occasional H (None) /hpf Disposition Clinical Impression: Subdural hematoma, Fall Disposition: OTHER INSTITUTION NOT DEFINED Condition: Fair - Out of Hospital Transfer - Req. Specs Out of Hospital Transfer - Requested Specifics: Other Emergency Center ( [facility] ER for neurosurgical services)
[2016-09-07 20:12] VITALS: BP 160/85; PULSE 65; RESP 16
[2016-09-08 14:29] LABS: Calcium 14.9 mg/dL (8.4-10.2)
== END 2016-09-07 19:45 | disposition other institution (70) ==
LOC: EC 15:23
DX: S06.5X0A Traumatic subdural hemorrhage without loss of consciousness, initial encounter (principal); W18.2XXA Fall in (into) shower or empty bathtub, initial encounter; Y93.E1 Activity, personal bathing and showering; Y92.002 Bathroom of unspecified non-institutional (private) residence as the place of occurrence of the external cause; Z79.82 Long term (current) use of aspirin; E07.9 Disorder of thyroid, unspecified; Z79.899 Other long term (current) drug therapy; Z79.4 Long term (current) use of insulin; I10 Essential (primary) hypertension; E11.9 Type 2 diabetes mellitus without complications; Z88.6 Allergy status to analgesic agent; Z88.1 Allergy status to other antibiotic agents; Z91.040 Latex allergy status; Z88.0 Allergy status to penicillin; Z88.2 Allergy status to sulfonamides; Z88.8 Allergy status to other drugs, medicaments and biological substances; Z91.048 Other nonmedicinal substance allergy status; Z88.5 Allergy status to narcotic agent; Z87.891 Personal history of nicotine dependence; C90.00 Multiple myeloma not having achieved remission; I25.2 Old myocardial infarction; J44.9 Chronic obstructive pulmonary disease, unspecified; K58.9 Irritable bowel syndrome, unspecified; M54.2 Cervicalgia
CPT/HCPCS: 96374; 96375; 99285; 36415; 80053; 85025; 81001; 72125; 72131; 70450; J2405; J2270